=== PATIENT | male | born 2000 | race Caucasian/White ===

== ENCOUNTER 2022-02-06 07:40 | Emergency (ER) | payer OTHER ==
[~2022-02-06] VITALS: Ht 180.3 cm; Wt 85.0 kg
[2022-02-06] MEDS ORDERED: IBUP200T46 PO (07:50)
[2022-02-06] MEDS ORDERED: methocarbamoL 500 MG TAB PO ONE (10:20)
[2022-02-06] MEDS ORDERED: KETOROLAC 30 MG/ML 1ML VIAL IM ONE (10:20)
[2022-02-06] MEDS ORDERED: LIDOCAINE 5% (LIDODERM) PATCH TD ONE (10:20)
[2022-02-06] MEDS ORDERED: METH-1164 PO (10:37)
[2022-02-06] MEDS ORDERED: FLON1SPR NARES (10:38)
[2022-02-06 10:59] VITALS: BP 143/61
[2022-02-06] MEDS ORDERED: **NOTE PATIENT COMMENT** MISC XX SCH (21:00)
== END 2022-02-06 11:03 | disposition home or self-care (01) ==
LOC: M ED 07:40
DX: S29.012A Strain of muscle and tendon of back wall of thorax, initial encounter (principal); J30.9 Allergic rhinitis, unspecified; Y92.9 Unspecified place or not applicable; Y93.B9 Activity, other involving muscle strengthening exercises; Y99.9 Unspecified external cause status
CPT/HCPCS: 71046; 96372; 99283; J1885

== ENCOUNTER 2023-04-22 11:31 | Emergency (ER) | payer OTHER ==
[~2023-04-22] VITALS: Ht 177.8 cm; Wt 86.9 kg
[~2023-04-22 11:31] MED LIST: FLON1SPR NARES; IBUP200T46 PO; METH-1164 PO
[2023-04-22 12:54] LABS: BASO % 0.2 % (0.0-1.0); EOS # 0.1 10^3/uL (0.0-0.5); EOS % 1.3 % (0.0-3.0); HEMATOCRIT 43.6 % (42.0-52.0); HEMOGLOBIN 14.8 g/dl (13.5-17.5); LYMPH # 1.9 10^3/uL (1.5-5.0); LYMPH % 39.6 % (24.0-44.0); MEAN CORPUSCULAR HGB CONC 33.9 g/dl (32.0-36.5); MEAN CORPUSCULAR VOLUME 88.3 fl (80.0-96.0); MONO # 0.5 10^3/uL (0.0-0.8); MONO % 11.1 % (2.0-8.0); NEUTROPHILS # 2.3 10^3/uL (1.5-8.5); NEUTROPHILS % 47.6 % (36.0-66.0); PLATELET COUNT, AUTOMATED 144 10^3/uL (150-450); RED BLOOD COUNT 4.94 10^6/uL (4.30-6.10); WHITE BLOOD COUNT 4.8 10^3/uL (4.0-10.0)
[2023-04-22 13:16] LABS: AMYLASE 66 U/L (30-118)
[2023-04-22 13:17] LABS: ALBUMIN 4.2 G/DL (3.2-5.2); ALKALINE PHOSPHATASE 78 U/L (46-116); ALT/SGPT 34 U/L (7.0-40); AST/SGOT 25 U/L (<34); BILIRUBIN,DIRECT 0.1 MG/DL (<0.4); BILIRUBIN,TOTAL 0.5 MG/DL (0.3-1.2); BLOOD UREA NITROGEN 34 MG/DL (9-23); CALCIUM LEVEL 8.9 MG/DL (8.5-10.1); CARBON DIOXIDE LEVEL 28 MMOL/L (20-31); CHLORIDE LEVEL 107 MMOL/L (98-107); GLOMERULAR FILTRATION RATE > 60.0 (>60); GLUCOSE, FASTING 87 MG/DL (60-100); POTASSIUM SERUM 4.7 MMOL/L (3.5-5.1); SODIUM LEVEL 140 MMOL/L (136-145); TOTAL PROTEIN 6.4 G/DL (5.7-8.2)
[2023-04-22] MEDS ORDERED: ANUSOL HC 25MG SUPP PR STA (16:39)
[2023-04-22] MEDS ORDERED: methocarbamoL 750 MG TAB PO ONE (17:00)
[2023-04-22 17:01] VITALS: BP 168/72; TEMP 98.5; O2SAT 98
[2023-04-22] MEDS ORDERED: ISOVUE-370 76% 100ML VIAL As Ordered ONE (17:14)
[2023-04-22 17:42] LABS: INR 0.97; PARTIAL THROMBOPLASTIN TIME 25.7 SECONDS (24.8-34.2); PROTHROMBIN TIME 13.1 SECONDS (12.5-14.5)
== END 2023-04-22 19:14 | disposition home or self-care (01) ==
LOC: M ED 11:31
DX: S30.0XXA Contusion of lower back and pelvis, initial encounter (principal); K62.5 Hemorrhage of anus and rectum; R19.09 Other intra-abdominal and pelvic swelling, mass and lump; M54.50 Low back pain, unspecified; F17.200 Nicotine dependence, unspecified, uncomplicated; Z79.1 Long term (current) use of non-steroidal anti-inflammatories (NSAID)
CPT/HCPCS: 36415; 74177; 80048; 80076; 82150; 85025; 85610; 85730; 99283; Q9967

== ENCOUNTER 2024-02-19 20:34 | Emergency (ER) | payer OTHER ==
[~2024-02-19] VITALS: Ht 177.8 cm; Wt 94.4 kg
[2024-02-19 20:34] VITALS: BP 143/81; TEMP 97.8; O2SAT 97
[2024-02-19 21:04] LABS: BASO % 0.3 % (0.0-1.0); EOS # 0.1 10^3/uL (0.0-0.5); EOS % 0.9 % (0.0-3.0); HEMATOCRIT 44.1 % (42.0-52.0); HEMOGLOBIN 15.5 g/dl (13.5-17.5); LYMPH # 2.7 10^3/uL (1.5-5.0); LYMPH % 33.9 % (24.0-44.0); MEAN CORPUSCULAR HEMOGLOBIN 30.2 pg (27.0-33.0); MEAN CORPUSCULAR HGB CONC 35.1 g/dl (32.0-36.5); MONO # 0.7 10^3/uL (0.0-0.8); MONO % 8.5 % (2.0-8.0); NEUTROPHILS # 4.5 10^3/uL (1.5-8.5); NEUTROPHILS % 56.3 % (36.0-66.0); PLATELET COUNT, AUTOMATED 158 10^3/uL (150-450); RED BLOOD COUNT 5.13 10^6/uL (4.30-6.10)
[2024-02-19 21:41] LABS: CK-MB VALUE MASS 5.5 NG/ML (<3.6)
[2024-02-19 21:43] LABS: ALBUMIN 4.1 G/DL (3.2-5.2); BILIRUBIN,DIRECT 0.2 MG/DL (<0.4); BILIRUBIN,TOTAL 0.5 MG/DL (0.3-1.2); CALCIUM LEVEL 9.5 MG/DL (8.5-10.1); CREATININE FOR GFR 1.63 MG/DL (0.70-1.30); GLOMERULAR FILTRATION RATE 55.6 (>60); POTASSIUM SERUM 4.1 MMOL/L (3.5-5.1); TOTAL PROTEIN 6.9 G/DL (5.7-8.2)
[2024-02-19 21:46] LABS: MB/CK RELATIVE INDEX 0.79 (< OR =4)
== END 2024-02-19 22:31 | disposition left against medical advice (07) ==
LOC: M ED 20:34
DX: Z53.21 Procedure and treatment not carried out due to patient leaving prior to being seen by health care provider (principal)